=== PATIENT | female | born 1960 | race Caucasian/White ===

== ENCOUNTER 2017-07-10 10:25 | Observation (INO) | payer MEDICARE, MEDICAID ==
[~2017-07-10] VITALS: Ht 157.5 cm; Wt 66.8 kg
[~2017-07-10 10:25] MED LIST: AMOX1TAB64 PO; CLON1TAB PO; HYDR-3237 PO; LEVO25TA4 PO
[2017-07-10 11:19] LABS: DAU SCREEN DISCLAIMER
[2017-07-10] MEDS ORDERED: LORazepam 1MG TABLET ONE (11:42)
[2017-07-10] MEDS ORDERED: LORazepam 1MG TABLET PO ONE (12:00)
[2017-07-10 12:03] LABS: HEMATOCRIT 42.6 % (34.6-47.8); HEMOGLOBIN 14.5 g/dL (11.7-16.4); WHITE BLOOD COUNT 9.3 x10^3/uL (3.4-10)
[2017-07-10 12:24] LABS: BLOOD UREA NITROGEN 15 mg/dL (7-18)
[2017-07-10 12:53] LABS: ASPARTATE AMINO TRANSFERASE 33 U/L (15-37)
[2017-07-10 12:55] LABS: ACETAMINOPHEN < 2 mcg/mL (10-30)
[2017-07-10] MEDS ORDERED: IBUPROFEN 200 MG TABLET PO ONE (16:30)
[2017-07-10] MEDS ORDERED: IBUPROFEN 200 MG TABLET ONE (16:54)
[2017-07-10] MEDS: NICOTINE 21 MG/24 HR PATCH.TD24 TD SCH (17:30)
[2017-07-10] MEDS ORDERED: BISACODYL 10 MG SUPP PR PRN (17:30)
[2017-07-10] MEDS ORDERED: DOCUSATE 100 MG CAPSULE PO PRN (17:30)
[2017-07-10] MEDS ORDERED: DIPHENHYDRAMINE 50 MG CAPSULE PO PRN (17:30)
[2017-07-10] MEDS ORDERED: ONDANSETRON ODT 4 MG PO PRN (17:30)
[2017-07-10] MEDS ORDERED: POLYETHYLENE GLYCOL 17 GM PACKET PO PRN (17:30)
[2017-07-10 18:26] VITALS: BP 129/73
[2017-07-10 19:49] VITALS: BP 112/68
[2017-07-10] MEDS: LORazepam 1MG TABLET PO PRN (21:15)
[2017-07-10] MEDS: ACETAMINOPHEN 325 MG TABLET PO PRN (21:16)
[2017-07-11 08:00] VITALS: BP 129/79
[2017-07-11] MEDS: ACETAMINOPHEN 325 MG TABLET PO PRN ×2 (08:07→18:37)
[2017-07-11] MEDS: LORazepam 1MG TABLET PO PRN ×2 (08:08→20:57)
[2017-07-11] MEDS ORDERED: IBUPROFEN 200 MG TABLET ONE (12:05)
[2017-07-11] MEDS ORDERED: IBUPROFEN 200 MG TABLET PO PRN ×2 (12:30→19:00)
[2017-07-11] MEDS: NICOTINE 21 MG/24 HR PATCH.TD24 TD SCH (12:56)
[2017-07-11] MEDS ORDERED: POLYETHYLENE GLYCOL 17 GM PACKET PO PRN (19:00)
[2017-07-11] MEDS ORDERED: ONDANSETRON ODT 4 MG PO PRN (19:00)
[2017-07-11] MEDS ORDERED: DIPHENHYDRAMINE 50 MG CAPSULE PO PRN (19:00)
[2017-07-11] MEDS ORDERED: DOCUSATE 100 MG CAPSULE PO PRN (19:00)
[2017-07-11] MEDS ORDERED: BISACODYL 10 MG SUPP PR PRN (19:00)
[2017-07-11 19:22] VITALS: BP 147/71
[2017-07-12 08:11] VITALS: BP 133/84
[2017-07-12] MEDS: ACETAMINOPHEN 325 MG TABLET PO PRN (08:58)
[2017-07-12] MEDS: LORazepam 1MG TABLET PO PRN ×2 (08:58→15:00)
[2017-07-12] MEDS: NICOTINE 21 MG/24 HR PATCH.TD24 TD SCH (13:13)
== END 2017-07-12 19:57 ==
LOC: ED 13:26 → EDIP 14:52 → INTOOBSV 14:52 → 3E 17:41
PROVIDERS: ADMIT Internal Medicine; ATTEND Internal Medicine
DX: R45.851 Suicidal ideations (principal); F20.9 Schizophrenia, unspecified; F22 Delusional disorders; F32.9 Major depressive disorder, single episode, unspecified; F43.10 Post-traumatic stress disorder, unspecified; F17.210 Nicotine dependence, cigarettes, uncomplicated; Z91.14 Patient's other noncompliance with medication regimen
CPT/HCPCS: 36415; 80053; 80307; 80329; 81003; 85025; 93005; 99285; G0378; Q0162; G0479; G0480

== ENCOUNTER 2017-09-21 09:35 | Emergency (ER) | payer MEDICARE, MEDICAID ==
[~2017-09-21] VITALS: Ht 157.5 cm; Wt 71.0 kg
[2017-09-21 11:22] LABS: HEMATOCRIT 44.5 % (34.6-47.8); HEMOGLOBIN 15.3 g/dL (11.7-16.4); WHITE BLOOD COUNT 7.7 x10^3/uL (3.4-10)
[2017-09-21] MEDS ORDERED: ACETAMINOPHEN 325 MG TABLET PO ONE (11:30)
[2017-09-21 11:34] LABS: BLOOD UREA NITROGEN 13 mg/dL (7-18)
[2017-09-21 11:37] LABS: ASPARTATE AMINO TRANSFERASE 32 U/L (15-37)
[2017-09-21] MEDS ORDERED: ACETAMINOPHEN 325 MG TABLET ONE (11:54)
[2017-09-21 13:34] VITALS: BP 145/65
== END 2017-09-21 13:36 | disposition home or self-care (01) ==
LOC: ED 13:05
DX: J18.1 Lobar pneumonia, unspecified organism (principal); F20.9 Schizophrenia, unspecified
CPT/HCPCS: 36415; 71020; 80053; 81003; 83690; 85025; 93005; 99285

== ENCOUNTER 2017-12-08 13:02 | Observation (INO) | payer MEDICARE, MEDICAID ==
[~2017-12-08] VITALS: Ht 157.5 cm; Wt 68.9 kg
[2017-12-08 15:03] LABS: MICROSCOPIC NOT IND
[2017-12-08 15:07] LABS: BASOPHILS # (AUTO) 0.12 x10^3/uL (0-0.1); BASOPHILS % (AUTO) 1 % (0-1); EOSINOPHILS # (AUTO) 0.08 x10^3/uL (0-0.4); EOSINOPHILS % (AUTO) 1 % (1-7); LYMPHOCYTES % (AUTO) 30 % (22-44); MD NO; MEAN CORPUSCULAR HEMOGLOBIN 31.3 pg (27.0-34.8); MEAN CORPUSCULAR HGB CONC 33.3 g/dL (32.4-35.8); MEAN PLATELET VOLUME 8.4 fL (7.4-10.4); MONOCYTES # (AUTO) 0.38 x10^3/uL (0.2-0.8); MONOCYTES % (AUTO) 4 % (2-9); NEUTROPHILS # (AUTO) 5.38 x10^3/uL (1.8-6.8); NEUTROPHILS % (AUTO) 63 % (42-75); PLATELET COUNT 295 x10^3/uL (130-400); RED BLOOD COUNT 4.87 x10^6/uL (3.82-5.3); RED CELL DISTRIBUTION WIDTH 13.7 % (9.6-15.2)
[2017-12-08 15:07] LABS: CULTURE INDICATED? NO
[2017-12-08 15:15] LABS: AMPHETAMINE SCREEN, URINE Negative (Negative); BARBITURATE SCREEN, URINE Negative (Negative); BENZODIAZEPINE SCREEN, URINE Negative (Negative); CANNABINOID SCREEN, URINE Negative (Negative); COCAINE SCREEN, URINE Negative (Negative); METHADONE SCREEN, URINE Negative (Negative); OPIATE SCREEN, URINE Negative (Negative)
[2017-12-08 15:18] LABS: ALANINE AMINOTRANSFERASE 27 U/L (12-78); ALBUMIN 3.5 g/dL (3.4-5.0); ANION GAP 5 mmol/L (5-15); CALCIUM 8.3 mg/dL (8.5-10.1); CHLORIDE 110 mmol/L (98-107); CREATININE 0.88 mg/dL (0.55-1.02); SALICYLATE LEVEL 3.6 mg/dL (2.8-20.0)
[2017-12-08 15:19] LABS: ACETAMINOPHEN < 2 mcg/mL (10-30)
[2017-12-08 15:20] LABS: ALKALINE PHOSPHATASE 98 U/L (45-117); BILIRUBIN,TOTAL 0.3 mg/dL (0.2-1.0); TOTAL PROTEIN 7.1 g/dL (6.4-8.2)
[2017-12-08] MEDS ORDERED: HALOPERIDOL 5 MG/ML IM PRN (17:30)
[2017-12-08] MEDS ORDERED: LORazepam 0.5MG TABLET ONE (18:32)
[2017-12-08] MEDS: LORazepam 1MG TABLET PO PRN (18:36)
[2017-12-09 11:58] VITALS: BP 131/80
[2017-12-09] MEDS: LORazepam 1MG TABLET PO PRN ×3 (13:18→21:49)
[2017-12-09 19:21] VITALS: BP 147/84
[2017-12-09] MEDS: ACETAMINOPHEN 325 MG TABLET PO PRN (21:49)
[2017-12-10 07:41] VITALS: BP 107/64
[2017-12-10] MEDS: LORazepam 1MG TABLET PO PRN (10:03)
[2017-12-10] MEDS: ACETAMINOPHEN 325 MG TABLET PO PRN (10:03)
[2017-12-10] MEDS: LORazepam 0.5MG TABLET PO PRN ×2 (14:22→19:49)
[2017-12-10 19:23] VITALS: BP 118/73
[2017-12-11 08:13] VITALS: BP 114/66
[2017-12-11] MEDS: LORazepam 0.5MG TABLET PO PRN ×2 (08:50→16:17)
[2017-12-11] MEDS ORDERED: LORazepam 0.5MG TABLET PO ONE (17:30)
[2017-12-11 19:53] VITALS: BP 135/82
[2017-12-12 08:29] VITALS: BP 139/79
[2017-12-12] MEDS: LORazepam 0.5MG TABLET PO PRN ×4 (09:12→21:11)
[2017-12-12] MEDS: ACETAMINOPHEN 325 MG TABLET PO PRN (09:12)
[2017-12-12 20:16] VITALS: BP 126/78
[2017-12-13 08:30] VITALS: BP 128/86
[2017-12-13] MEDS: ACETAMINOPHEN 325 MG TABLET PO PRN ×2 (09:13→22:03)
[2017-12-13] MEDS: LORazepam 0.5MG TABLET PO PRN ×4 (09:13→20:25)
[2017-12-13 20:55] VITALS: BP 131/69
[2017-12-14 07:38] VITALS: BP 119/76
[2017-12-14] MEDS: LORazepam 0.5MG TABLET PO PRN ×3 (07:51→20:30)
[2017-12-14] MEDS: DIPHENHYDRAMINE 50 MG CAPSULE PO PRN ×2 (16:23→20:25)
[2017-12-14 20:24] VITALS: BP 123/80
[2017-12-15 08:20] VITALS: BP 123/81
[2017-12-15] MEDS: LORazepam 0.5MG TABLET PO PRN ×3 (08:39→20:26)
[2017-12-15] MEDS: ACETAMINOPHEN 325 MG TABLET PO PRN (11:35)
[2017-12-15 19:38] VITALS: BP 122/75
[2017-12-16 08:15] VITALS: BP 119/72
[2017-12-16] MEDS: LORazepam 0.5MG TABLET PO PRN ×4 (08:30→23:51)
[2017-12-16] MEDS ORDERED: LORazepam 0.5MG TABLET PO ONE (14:00)
[2017-12-16 19:35] VITALS: BP 142/77
[2017-12-16] MEDS: ACETAMINOPHEN 325 MG TABLET PO PRN (21:29)
[2017-12-17 07:37] VITALS: BP 124/77
[2017-12-17] MEDS: LORazepam 0.5MG TABLET PO PRN ×2 (08:26→13:20)
== END 2017-12-17 16:34 | disposition home or self-care (01) ==
LOC: ED 15:25 → EDIP 16:02 → 2N 12-09 11:23
PROVIDERS: ADMIT Internal Medicine Pulmonary Disease; ATTEND Internal Medicine Pulmonary Disease
DX: R45.851 Suicidal ideations (principal); F33.2 Major depressive disorder, recurrent severe without psychotic features; F20.9 Schizophrenia, unspecified; F43.10 Post-traumatic stress disorder, unspecified; F17.210 Nicotine dependence, cigarettes, uncomplicated
CPT/HCPCS: 36415; 80053; 80307; 80329; 81003; 82140; 85025; 93005; 99285; G0378; G0480

== ENCOUNTER 2018-07-22 09:57 | Emergency (ER) | payer MEDICARE, MEDICAID ==
[~2018-07-22] VITALS: Ht 154.9 cm; Wt 77.3 kg
[2018-07-22] MEDS ORDERED: ALBUTEROL/IPRATROPIUM 2.5MG/0.5MG, 3 ML NPPB ONE (10:30)
[2018-07-22 10:41] LABS: BASOPHILS # (AUTO) 0.04 x10^3/uL (0-0.1); BASOPHILS % (AUTO) 1 % (0-1); EOSINOPHILS # (AUTO) 0.25 x10^3/uL (0-0.4); EOSINOPHILS % (AUTO) 4 % (1-7); LYMPHOCYTES # (AUTO) 1.99 x10^3/uL (1-3.4); LYMPHOCYTES % (AUTO) 31 % (22-44); MD NO; MEAN CORPUSCULAR HEMOGLOBIN 32.1 pg (27.0-34.8); MEAN CORPUSCULAR HGB CONC 33.8 g/dL (32.4-35.8); MEAN PLATELET VOLUME 7.8 fL (7.4-10.4); MONOCYTES % (AUTO) 8 % (2-9); NEUTROPHILS # (AUTO) 3.74 x10^3/uL (1.8-6.8); NEUTROPHILS % (AUTO) 57 % (42-75); PLATELET COUNT 295 x10^3/uL (130-400); RED BLOOD COUNT 4.42 x10^6/uL (3.82-5.3); RED CELL DISTRIBUTION WIDTH 14.5 % (9.6-15.2)
[2018-07-22] MEDS ORDERED: ALBUTEROL/IPRATROPIUM 2.5MG/0.5MG, 3 ML ONE (10:43)
[2018-07-22 10:53] LABS: ALBUMIN 3.4 g/dL (3.4-5.0); ANION GAP 6 mmol/L (5-15); CALCIUM 8.3 mg/dL (8.5-10.1); CHLORIDE 110 mmol/L (98-107); CREATININE 0.85 mg/dL (0.55-1.02)
[2018-07-22 10:57] LABS: TROPONIN I 0.025 ng/mL (0.000-0.045)
[2018-07-22] MEDS ORDERED: OMNIPAQUE 350 MG/ML, 75ML BOTTLE ONE (12:00)
[2018-07-22 12:37] VITALS: BP 155/67
== END 2018-07-22 12:49 | disposition home or self-care (01) ==
LOC: ED 10:28
DX: J20.9 Acute bronchitis, unspecified (principal); R07.89 Other chest pain; R06.00 Dyspnea, unspecified; F32.9 Major depressive disorder, single episode, unspecified; H54.7 Unspecified visual loss; F20.9 Schizophrenia, unspecified; F43.10 Post-traumatic stress disorder, unspecified
CPT/HCPCS: 36415; 71046; 71260; 80048; 82040; 83880; 84484; 85025; 93005; 94640; 99285; J7620; Q9967

== ENCOUNTER 2018-12-23 10:22 | Emergency (ER) | payer MEDICARE, MEDICAID ==
[~2018-12-23] VITALS: Ht 160 cm; Wt 77.8 kg
--- NOTE | 2018-12-23 10:38 | NUR ---
CALLED FOR TRIAGE, "IN THE BR"
[2018-12-23 11:41] LABS: MEAN CORPUSCULAR HEMOGLOBIN 32.3 pg (27.0-34.8); MEAN CORPUSCULAR HGB CONC 34.4 g/dL (32.4-35.8); MEAN CORPUSCULAR VOLUME 93.8 fL (80-100); MEAN PLATELET VOLUME 7.8 fL (7.4-10.4); PLATELET COUNT 356 x10^3/uL (130-400); RED BLOOD COUNT 4.57 x10^6/uL (3.82-5.3); RED CELL DISTRIBUTION WIDTH 14.1 % (9.6-15.2)
[2018-12-23 11:47] LABS: BASOPHILS # (AUTO) 0.03 x10^3/uL (0-0.1); BASOPHILS % (AUTO) 0 % (0-1); EOSINOPHILS # (AUTO) 0.11 x10^3/uL (0-0.4); EOSINOPHILS % (AUTO) 1 % (1-7); LYMPHOCYTES # (AUTO) 1.87 x10^3/uL (1-3.4); LYMPHOCYTES % (AUTO) 20 % (22-44); MONOCYTES # (AUTO) 0.45 x10^3/uL (0.2-0.8); MONOCYTES % (AUTO) 5 % (2-9); NEUTROPHILS # (AUTO) 7.04 x10^3/uL (1.8-6.8); NEUTROPHILS % (AUTO) 74 % (42-75)
[2018-12-23 11:49] LABS: MD NO
[2018-12-23 11:51] LABS: ALBUMIN 3.8 g/dL (3.4-5.0); ANION GAP 8 mmol/L (5-15); CHLORIDE 109 mmol/L (98-107); CREATININE 0.92 mg/dL (0.55-1.02)
[2018-12-23 11:55] LABS: TROPONIN I < 0.015 ng/mL (0.000-0.045)
[2018-12-23] MEDS ORDERED: ONDANSETRON 2MG/ML, 2ML ONE (15:08)
--- NOTE | 2018-12-23 15:11 | NUR ---
PT TO ROOM FROM LOBBY
[2018-12-23 15:25] VITALS: BP 179/98
[2018-12-23] MEDS ORDERED: LORazepam 1MG TABLET ONE (15:40)
--- NOTE | 2018-12-23 15:49 | NUR ---
PT PRESENTED TO ED WITH N/T IN BILAT UE, LE, AND FACE WITH SHAKING. PT STATES SHE STOPPED TAKING HER ETOH WITHDRAWL MEDICATION A COUPLE DAYS AGO SO SHE COULD DRINK. LABS AND CT COMPLETE, PROVIDER AT BEDSIDE
[2018-12-23] MEDS ORDERED: LORazepam 1MG TABLET PO ONE (16:00)
== END 2018-12-23 16:31 | disposition home or self-care (01) ==
LOC: ED 16:11
DX: I10 Essential (primary) hypertension (principal); R51 Headache; Z87.891 Personal history of nicotine dependence
CPT/HCPCS: 36415; 70450; 71045; 80048; 82040; 84484; 85025; 93005; 99284

== ENCOUNTER 2019-03-21 08:00 | Emergency (ER) | payer MEDICARE, MEDICAID ==
[~2019-03-21] VITALS: Ht 160 cm; Wt 80.5 kg
[2019-03-21 08:03] VITALS: BP 178/95
--- NOTE | 2019-03-21 08:15 | NUR ---
FIRST CONTACT WITH PT. Pt sitting in chair in ED room. Provided sheet on [facility] gown. Pt changing in room at this time. Pt stated to EDRN, "I have had coughing, chest pain here in my ribs and in my back when I cough, nausea, vomiting, and saw stars this morning when coughing so hard that I had to lay on my stomach to get it up, this has been going on for one month." NADN. Pt ambulates with steady gait and balance. Call light within reach.
[2019-03-21] MEDS ORDERED: ALBUTEROL SULFATE 2.5 MG/3 ML ONE (08:46)
[2019-03-21] MEDS ORDERED: SODIUM CHLORIDE FLUSH 10ML SYR IVF ONE (09:00)
[2019-03-21] MEDS ORDERED: ALBUTEROL SULFATE 2.5 MG/3 ML NPPB ONE (09:00)
[2019-03-21] MEDS ORDERED: ASPIRIN 81 MG TABLET CHEW PO ONE (09:00)
--- NOTE | 2019-03-21 09:00 | NUR ---
Provided bedside report to DREW Silveira. All questions answered. NADN. No needs expressed at this time.
[2019-03-21 09:04] LABS: BASOPHILS # (AUTO) 0.04 x10^3/uL (0-0.1); BASOPHILS % (AUTO) 1 % (0-1); EOSINOPHILS # (AUTO) 0.18 x10^3/uL (0-0.4); EOSINOPHILS % (AUTO) 3 % (1-7); LYMPHOCYTES # (AUTO) 2.09 x10^3/uL (1-3.4); LYMPHOCYTES % (AUTO) 33 % (22-44); MD NO; MEAN CORPUSCULAR HEMOGLOBIN 31.3 pg (27.0-34.8); MEAN CORPUSCULAR HGB CONC 32.9 g/dL (32.4-35.8); MEAN CORPUSCULAR VOLUME 95.1 fL (80-100); MEAN PLATELET VOLUME 7.7 fL (7.4-10.4); MONOCYTES # (AUTO) 0.56 x10^3/uL (0.2-0.8); MONOCYTES % (AUTO) 9 % (2-9); NEUTROPHILS # (AUTO) 3.53 x10^3/uL (1.8-6.8); NEUTROPHILS % (AUTO) 55 % (42-75); PLATELET COUNT 294 x10^3/uL (130-400); RED BLOOD COUNT 4.35 x10^6/uL (3.82-5.3)
[2019-03-21 09:12] LABS: ALBUMIN 3.3 g/dL (3.4-5.0); ANION GAP 4 mmol/L (5-15); CALCIUM 8.8 mg/dL (8.5-10.1); CHLORIDE 111 mmol/L (98-107)
[2019-03-21 09:18] LABS: TROPONIN I < 0.015 ng/mL (0.000-0.045)
[2019-03-21] MEDS ORDERED: ASPIRIN 81 MG TABLET CHEW ONE (09:19)
--- NOTE | 2019-03-21 09:25 | NUR ---
Assumed care of pt. Pt states she received a breathing treatment and that it has helped her breathing. Pt not coughing at this moment. Indicating bilateral rib and upper back pain with cough
[2019-03-21] MEDS ORDERED: ONDANSETRON ODT 4 MG PO ONE (10:00)
[2019-03-21] MEDS ORDERED: ONDANSETRON ODT 4 MG ONE (10:01)
--- NOTE | 2019-03-21 10:47 | NUR ---
PT TOLERATED PO CHALLENGE AFTER GIVEN ZOFRAN. AMBULATED TO BATHROOM. AWAITING DISPO
== END 2019-03-21 11:18 | disposition home or self-care (01) ==
LOC: ED 09:45
DX: J06.9 Acute upper respiratory infection, unspecified (principal); I10 Essential (primary) hypertension; F20.9 Schizophrenia, unspecified; Z87.891 Personal history of nicotine dependence
CPT/HCPCS: 36415; 71045; 80048; 82040; 83880; 84484; 85025; 85379; 93005; 94640; 99284; J7613; Q0162

== ENCOUNTER 2019-10-07 10:23 | Emergency (ER) | payer MEDICARE, MEDICAID ==
[~2019-10-07] VITALS: Ht 160 cm; Wt 81.0 kg
--- NOTE | 2019-10-07 11:01 | NUR ---
PATIENT BROUGTH BACK FROM TRIAGE WITH CHIEF COMPLAINT OF COUGH FOR TWO WEEKS, WITH WHITE SPUTUM. PATIENT ALSO REPORTS INTERMITTENT N/V, HOWEVER DENIES SOB, & CP. THE PATIENT IS ALERT, ORIENTED, WARM & DRY.
[2019-10-07] MEDS ORDERED: LISI2.5T PO (11:07)
[2019-10-07] MEDS ORDERED: SIMV5TAB14 PO (11:07)
[2019-10-07] MEDS ORDERED: IBUPROFEN 200 MG TABLET ONE (11:25)
[2019-10-07] MEDS ORDERED: IBUPROFEN 200 MG TABLET PO ONE (11:30)
--- NOTE | 2019-10-07 11:48 | NUR ---
MEDICATED ORDERED. PATIENT RESTIGN IN BED
[2019-10-07 11:57] LABS: BASOPHILS # (AUTO) 0.03 x10^3/uL (0-0.1); BASOPHILS % (AUTO) 1 % (0-1); EOSINOPHILS # (AUTO) 0.14 x10^3/uL (0-0.4); EOSINOPHILS % (AUTO) 3 % (1-7); LYMPHOCYTES # (AUTO) 1.72 x10^3/uL (1-3.4); LYMPHOCYTES % (AUTO) 29 % (22-44); MD NO; MEAN CORPUSCULAR HEMOGLOBIN 31.7 pg (27.0-34.8); MEAN CORPUSCULAR HGB CONC 33.2 g/dL (32.4-35.8); MEAN CORPUSCULAR VOLUME 95.4 fL (80-100); MEAN PLATELET VOLUME 7.8 fL (7.4-10.4); MONOCYTES # (AUTO) 0.57 x10^3/uL (0.2-0.8); MONOCYTES % (AUTO) 10 % (2-9); NEUTROPHILS # (AUTO) 3.41 x10^3/uL (1.8-6.8); NEUTROPHILS % (AUTO) 58 % (42-75); PLATELET COUNT 313 x10^3/uL (130-400); RED BLOOD COUNT 4.64 x10^6/uL (3.82-5.3); RED CELL DISTRIBUTION WIDTH 14.4 % (9.6-15.2)
[2019-10-07 12:04] LABS: CHLORIDE 108 mmol/L (98-107)
[2019-10-07 12:16] LABS: ALBUMIN 3.5 g/dL (3.4-5.0); ANION GAP 6 mmol/L (5-15); CALCIUM 8.9 mg/dL (8.5-10.1)
--- NOTE | 2019-10-07 12:20 | NUR ---
PATIENT BACK FROM IMAGING
[2019-10-07 12:39] VITALS: BP 152/66
--- NOTE | 2019-10-07 12:39 | NUR ---
ERMD GRAUSE AT BEDSIDE TO DISCUSS POC
--- NOTE | 2019-10-07 12:58 | NUR ---
DISCHARGE INSTRUCTIONS REVIEWED.
== END 2019-10-07 13:00 | disposition home or self-care (01) ==
LOC: ED 12:30
DX: B34.9 Viral infection, unspecified (principal); R09.3 Abnormal sputum; M79.10 Myalgia, unspecified site; I10 Essential (primary) hypertension; Z87.891 Personal history of nicotine dependence
CPT/HCPCS: 36415; 71046; 80048; 82040; 85025; 93005; 99284

== ENCOUNTER 2019-10-31 08:28 | Emergency (ER) | payer MEDICARE, MEDICAID ==
[~2019-10-31] VITALS: Ht 160 cm; Wt 82.8 kg
[~2019-10-31 08:28] MED LIST changes: +LISI2.5T PO; +SIMV5TAB14 PO
[2019-10-31] MEDS ORDERED: ONDANSETRON 2MG/ML, 2ML ONE (09:13)
[2019-10-31] MEDS ORDERED: MORPHINE SULFATE 4 MG/ML, 1ML ONE (09:13)
[2019-10-31] MEDS ORDERED: ONDANSETRON 2MG/ML, 2ML IVPush ONE (09:30)
[2019-10-31] MEDS ORDERED: MORPHINE SULFATE 4 MG/ML, 1ML IVPush PRN (09:30)
[2019-10-31] MEDS ORDERED: SODIUM CHLORIDE FLUSH 10ML SYR IVF ONE (09:30)
--- NOTE | 2019-10-31 09:51 | NUR ---
IV ESTABLISHED AND PT MEDICATED PER MAR, URINE AND BLOOD SAMPLES GIVEN TO MEDICAL RESEARCH ASSOCIATE. PT PLACED ON MONITOR, UPGRADED TO PHU LEVEL 3. CALL LIGHT WITHIN REACH, AT BEDSIDE.
[2019-10-31 10:01] LABS: MICROSCOPIC NOT IND
[2019-10-31 10:06] LABS: BASOPHILS # (AUTO) 0.07 x10^3/uL (0-0.1); BASOPHILS % (AUTO) 1 % (0-1); EOSINOPHILS % (AUTO) 3 % (1-7); LYMPHOCYTES # (AUTO) 2.44 x10^3/uL (1-3.4); LYMPHOCYTES % (AUTO) 32 % (22-44); MD NO; MEAN CORPUSCULAR HEMOGLOBIN 31.5 pg (27.0-34.8); MEAN CORPUSCULAR VOLUME 95.3 fL (80-100); MONOCYTES # (AUTO) 0.65 x10^3/uL (0.2-0.8); MONOCYTES % (AUTO) 9 % (2-9); NEUTROPHILS % (AUTO) 56 % (42-75); PLATELET COUNT 316 x10^3/uL (130-400); RED BLOOD COUNT 4.61 x10^6/uL (3.82-5.3); RED CELL DISTRIBUTION WIDTH 14.6 % (9.6-15.2)
[2019-10-31 10:10] LABS: CULTURE INDICATED? NO
[2019-10-31 10:14] LABS: ALBUMIN 3.4 g/dL (3.4-5.0); ANION GAP 7 mmol/L (5-15); CALCIUM 8.6 mg/dL (8.5-10.1); CHLORIDE 109 mmol/L (98-107)
[2019-10-31 10:17] LABS: ALANINE AMINOTRANSFERASE 55 U/L (12-78); ALKALINE PHOSPHATASE 117 U/L (45-117); BILIRUBIN,TOTAL 0.4 mg/dL (0.2-1.0); CREATININE 1.01 mg/dL (0.55-1.02); TOTAL PROTEIN 7.4 g/dL (6.4-8.2)
[2019-10-31] MEDS ORDERED: OMNIPAQUE 350 MG/ML, 100ML BOTTLE ONE (11:28)
[2019-10-31] MEDS ORDERED: IBUPROFEN 600 MG TABLET PO ONE (11:30)
[2019-10-31 11:37] VITALS: BP 166/73
== END 2019-10-31 12:16 | disposition home or self-care (01) ==
LOC: ED 12:00
DX: M51.36 Other intervertebral disc degeneration, lumbar region (principal); R11.0 Nausea
CPT/HCPCS: 36415; 74177; 80053; 81003; 83690; 85025; 96374; 96375; 99284; J2270; J2405; Q9967

== ENCOUNTER 2020-05-13 08:34 | Emergency (ER) | payer MEDICARE, MEDICAID ==
[~2020-05-13] VITALS: Ht 160 cm; Wt 83.0 kg
--- NOTE | 2020-05-13 09:21 | NUR ---
REPORT FROM TAMANNA RUSSELL.
[2020-05-13 09:30] LABS: BASOPHILS # (AUTO) 0.05 x10^3/uL (0-0.1); BASOPHILS % (AUTO) 1 % (0-1); EOSINOPHILS # (AUTO) 0.22 x10^3/uL (0-0.4); EOSINOPHILS % (AUTO) 3 % (1-7); LYMPHOCYTES # (AUTO) 2.16 x10^3/uL (1-3.4); LYMPHOCYTES % (AUTO) 24 % (22-44); MD NO; MEAN CORPUSCULAR HEMOGLOBIN 31.6 pg (27.0-34.8); MEAN CORPUSCULAR HGB CONC 32.9 g/dL (32.4-35.8); MEAN CORPUSCULAR VOLUME 96.1 fL (80-100); MEAN PLATELET VOLUME 7.7 fL (7.4-10.4); MONOCYTES # (AUTO) 0.63 x10^3/uL (0.2-0.8); MONOCYTES % (AUTO) 7 % (2-9); NEUTROPHILS # (AUTO) 5.77 x10^3/uL (1.8-6.8); NEUTROPHILS % (AUTO) 65 % (42-75); PLATELET COUNT 321 x10^3/uL (130-400); RED BLOOD COUNT 4.53 x10^6/uL (3.82-5.3); RED CELL DISTRIBUTION WIDTH 14.4 % (9.6-15.2)
[2020-05-13 09:45] LABS: ALANINE AMINOTRANSFERASE 55 U/L (12-78); ALBUMIN 3.5 g/dL (3.4-5.0); ANION GAP 7 mmol/L (5-15); CHLORIDE 110 mmol/L (98-107); CREATININE 0.88 mg/dL (0.55-1.02)
[2020-05-13 09:47] LABS: ALKALINE PHOSPHATASE 130 U/L (45-117); BILIRUBIN,TOTAL 0.5 mg/dL (0.2-1.0); TOTAL PROTEIN 7.2 g/dL (6.4-8.2)
[2020-05-13] MEDS ORDERED: NEOSPORIN OINT. PKT 1 PACKET ONE (10:09)
[2020-05-13 10:31] LABS: MICROSCOPIC NOT IND
--- NOTE | 2020-05-13 10:35 | NUR ---
OOB TO BATHROOM GAIT STEADY UA SENT TO LAB. VSS. CALL ALLY Allen
--- NOTE | 2020-05-13 10:55 | NUR ---
RESULTS BACK ALL WNL RECHECK.
[2020-05-13 11:20] VITALS: BP 148/78
== END 2020-05-13 11:22 | disposition home or self-care (01) ==
LOC: ED 09:04
DX: J06.9 Acute upper respiratory infection, unspecified (principal); H92.02 Otalgia, left ear; R07.89 Other chest pain; Z76.0 Encounter for issue of repeat prescription; I10 Essential (primary) hypertension; Z87.891 Personal history of nicotine dependence
CPT/HCPCS: 36415; 71045; 80053; 81003; 85025; 99284

== ENCOUNTER 2020-06-21 17:21 | Emergency (ER) | payer MEDICARE, MEDICAID ==
[~2020-06-21] VITALS: Ht 157.5 cm; Wt 85.6 kg
[2020-06-21 17:24] VITALS: BP 201/113
[2020-06-21] MEDS ORDERED: NEOSPORIN OINT. PKT 1 PACKET ONE (17:59)
[2020-06-21] MEDS ORDERED: DIPH,PERTUSS(ACELL),TET VAC/PF 0.5 ML IM-VACC ONE ×2 (17:59→18:00)
[2020-06-21] MEDS ORDERED: LIDOCAINE-MPF 1%, 5ML INFIL ONE (18:00)
--- NOTE | 2020-06-21 18:57 | NUR ---
Patient given wound care and discharge instructions and they have confirmed that they understand the instructions. Patient ambulatory with steady gait.
== END 2020-06-21 18:58 | disposition home or self-care (01) ==
LOC: ED 18:50
DX: S61.012A Laceration without foreign body of left thumb without damage to nail, initial encounter (principal); I10 Essential (primary) hypertension; Z87.891 Personal history of nicotine dependence; W26.0XXA Contact with knife, initial encounter; Y93.89 Activity, other specified; Y92.090 Kitchen in other non-institutional residence as the place of occurrence of the external cause; Y99.8 Other external cause status
CPT/HCPCS: 12001; 90471; 90715; 99283

== ENCOUNTER 2020-11-11 09:20 | Emergency (ER) | payer MEDICARE, MEDICAID ==
[~2020-11-11] VITALS: Ht 160 cm; Wt 86.0 kg
--- NOTE | 2020-11-11 09:33 | NUR ---
Pt ambulatory to bathroom for UA with steady gait.
--- NOTE | 2020-11-11 09:55 | NUR ---
REPORT OF PT FROM DREW AHUJA AND ASSUMING CARE OF PT AT THIS TIME.
[2020-11-11] MEDS ORDERED: HYDROcodone/APAP 5/325 TABLET ONE (09:59)
[2020-11-11] MEDS ORDERED: HYDROcodone/APAP 5/325 TABLET PO ONE (10:00)
--- NOTE | 2020-11-11 10:04 | NUR ---
pt medicated per mar at this time. lab at for pt blood draw.
[2020-11-11 10:23] LABS: MICROSCOPIC NOT IND
[2020-11-11 10:32] LABS: ALANINE AMINOTRANSFERASE 102 U/L (12-78); ALBUMIN 3.6 g/dL (3.4-5.0); ANION GAP 2 mmol/L (5-15); CALCIUM 8.7 mg/dL (8.5-10.1); CHLORIDE 111 mmol/L (98-107); CREATININE 0.91 mg/dL (0.55-1.02)
[2020-11-11 10:34] LABS: ALKALINE PHOSPHATASE 148 U/L (45-117); BILIRUBIN,TOTAL 0.4 mg/dL (0.2-1.0); TOTAL PROTEIN 7.8 g/dL (6.4-8.2)
[2020-11-11 10:47] LABS: BASOPHILS % (AUTO) 0 % (0-1); EOSINOPHILS % (AUTO) 3 % (1-7); LYMPHOCYTES % (AUTO) 32 % (22-44); MEAN CORPUSCULAR HEMOGLOBIN 32.7 pg (27.0-34.8); MEAN CORPUSCULAR HGB CONC 33.9 g/dL (32.4-35.8); MEAN PLATELET VOLUME 8.3 fL (7.4-10.4); MONOCYTES % (AUTO) 8 % (2-9); NEUTROPHILS % (AUTO) 56 % (42-75); PLATELET COUNT 313 x10^3/uL (130-400); RED BLOOD COUNT 4.78 x10^6/uL (3.82-5.3)
[2020-11-11 10:57] LABS: MD NO
--- NOTE | 2020-11-11 12:18 | NUR ---
PT D/C WITH D/C SUMMARY AND SCRIPTS. ALL QUESTIONS ANSWERED. PT AMBULATES TO REGISTRATION DESK WITH STEADY GAIT FOR D/C HOME AND DENIES ANY OTHER NEEDS PERTAINING TO THIS VISIT. PT QUESTIONS ANSWERED. PT USE OF HOSPITAL PHONE TO CALL SON FOR RIDE HOME.
[2020-11-11 12:19] VITALS: BP 114/81
== END 2020-11-11 12:31 | disposition home or self-care (01) ==
LOC: ED 10:51
DX: M51.36 Other intervertebral disc degeneration, lumbar region (principal); K70.10 Alcoholic hepatitis without ascites; K76.0 Fatty (change of) liver, not elsewhere classified; G89.29 Other chronic pain; I10 Essential (primary) hypertension
CPT/HCPCS: 36415; 72110; 76700; 80053; 81003; 85025; 99285

== ENCOUNTER 2021-01-26 10:10 | Observation (INO) | payer MEDICARE, MEDICAID ==
[~2021-01-26] VITALS: Ht 160 cm; Wt 90.1 kg
[~2021-01-26 10:10] MED LIST changes: -LISI2.5T PO; +LISI2.5T12 PO
--- NOTE | 2021-01-26 13:06 | NUR ---
Pt ambulatory to room from lobby with steady gait.
[2021-01-26] MEDS ORDERED: LORA-446 PO (13:25)
--- NOTE | 2021-01-26 13:25 | NUR ---
Dr. Tang at bedside to evaluate pt. Pt reports intermittent mid chest pain 3/10, dizziness, and HTN x3 days. Pt speaking in full sentences, resp even and unlabored.
[2021-01-26 14:18] LABS: BASOPHILS % (AUTO) 1 % (0-1); EOSINOPHILS % (AUTO) 2 % (1-7); LYMPHOCYTES % (AUTO) 27 % (22-44); MEAN CORPUSCULAR HEMOGLOBIN 32.5 pg (27.0-34.8); MEAN CORPUSCULAR HGB CONC 33.6 g/dL (32.4-35.8); MEAN PLATELET VOLUME 8.2 fL (7.4-10.4); MONOCYTES % (AUTO) 9 % (2-9); NEUTROPHILS % (AUTO) 61 % (42-75); PLATELET COUNT 306 x10^3/uL (130-400); RED BLOOD COUNT 4.51 x10^6/uL (3.82-5.3); RED CELL DISTRIBUTION WIDTH 14.2 % (9.6-15.2)
[2021-01-26 14:22] LABS: ALANINE AMINOTRANSFERASE 80 U/L (12-78); ALBUMIN 3.3 g/dL (3.4-5.0); ANION GAP 5 mmol/L (5-15); CALCIUM 8.4 mg/dL (8.5-10.1); CHLORIDE 107 mmol/L (98-107)
--- NOTE | 2021-01-26 14:24 | NUR ---
Pt ambulatory down hallway with steady gait to use phone. Pt back to room without difficulty. Discussed pt's BP with Dr. Tang. Orders for vasotec recieved.
[2021-01-26 14:27] LABS: ALKALINE PHOSPHATASE 113 U/L (45-117); BILIRUBIN,TOTAL 0.3 mg/dL (0.2-1.0); TOTAL PROTEIN 7.2 g/dL (6.4-8.2); TROPONIN I < 0.015 ng/mL (0.000-0.045)
[2021-01-26] MEDS ORDERED: ENALAPRILAT 1.25 MG/ML, 2ML IV ONE (14:30)
[2021-01-26] MEDS ORDERED: ENALAPRILAT 1.25 MG/ML, 1ML ONE (14:36)
--- NOTE | 2021-01-26 14:48 | NUR ---
Pt to CT via [facility].
[2021-01-26] MEDS ORDERED: OMNIPAQUE 350 MG/ML, 75ML BOTTLE ONE (14:54)
--- NOTE | 2021-01-26 14:57 | NUR ---
Pt back from CT, resting in bed, JAMESN.
--- NOTE | 2021-01-26 15:08 | NUR ---
Pt continues resting in bed, NADN, denies needs.
--- NOTE | 2021-01-26 15:13 | NUR ---
BREAK RN: PT WATCHING TV IN ROOM. WEB OPERATIONS MANAGER ON. NSR NOTED. DR ZENDEJAS AWARE OF VS. NO NEW ORDERS AT THIS TIME. NO ACUTE DISTRESS NOTED. CALL LIGHT IN PLACE. WILL CONTINUE TO MONITOR
--- NOTE | 2021-01-26 15:58 | NUR ---
BREAK RN: REPOT GIVEN TO DREW MURPHY
--- NOTE | 2021-01-26 16:05 | NUR ---
Recieved report from willow RUSSELL
[2021-01-26] MEDS ORDERED: hydrALAzine 20 MG/ML, 1ML ONE (16:30)
[2021-01-26] MEDS ORDERED: hydrALAzine 20 MG/ML, 1ML IV ONE (16:30)
--- NOTE | 2021-01-26 16:38 | NUR ---
Pt medicated for continued HTN per DEC. Pt c/o 05/28 pain in the back of her neck. Pt requesting pain medication for this. Pt states "I have some hair pins in my hair, I think that's what's causing it." Pt's hair clips removed. Pt reports pain resolved.
[2021-01-26] MEDS ORDERED: ACETAMINOPHEN 325 MG TABLET ONE (17:14)
--- NOTE | 2021-01-26 17:16 | NUR ---
Pt c/o Pain in L lower ribs. Discussed with Dr. Tang. Pt medicated per DEC.
--- NOTE | 2021-01-26 17:26 | NUR ---
Pt provided meal tray and assisted with setup. Pt denies other needs.
[2021-01-26] MEDS ORDERED: ACETAMINOPHEN 325 MG TABLET PO ONE (17:30)
--- NOTE | 2021-01-26 17:43 | NUR ---
Pt reports she is feeling much better after eating her food. Pt able to position self for comfort in bed, denies other needs.
--- NOTE | 2021-01-26 18:00 | NUR ---
Called report to Darcy RUSSELL on card tele. Floor ready for pt transport.
[2021-01-26 18:27] VITALS: BP 124/74
[2021-01-26] MEDS ORDERED: NITROGLYCERIN 0.4 MG BOTTLE (25 TABS) SL PRN (19:30)
[2021-01-26] MEDS ORDERED: ONDANSETRON ODT 4 MG PO PRN (19:30)
[2021-01-26] MEDS ORDERED: morphine SULFATE 10 MG/ML, 1ML IVPush PRN (19:30)
[2021-01-26] MEDS ORDERED: POLYETHYLENE GLYCOL 17 GM PACKET PO PRN (19:30)
[2021-01-26] MEDS ORDERED: ACETAMINOPHEN 325 MG TABLET PO PRN (19:30)
[2021-01-26] MEDS ORDERED: BISACODYL 10 MG SUPP PR PRN (19:30)
[2021-01-26] MEDS ORDERED: hydrALAzine 20 MG/ML, 1ML IVPush PRN (19:30)
[2021-01-26 21:06] LABS: TROPONIN I < 0.015 ng/mL (0.000-0.045)
[2021-01-26] MEDS: HEPARIN 5,000 UNITS/ML, 1ML SQ SCH (21:42)
[2021-01-26] MEDS: LORazepam 1MG TABLET PO PRN (21:42)
[2021-01-26] MEDS: SODIUM CHLORIDE FLUSH 10ML SYR IVF SCH (21:43)
[2021-01-27 00:24] VITALS: BP 125/81
[2021-01-27 02:37] LABS: TROPONIN I < 0.015 ng/mL (0.000-0.045)
[2021-01-27 02:39] LABS: CHOL/HDL RATIO 2.7; LDL/HDL RATIO 1.3 (0.5-3.0)
[2021-01-27 05:05] VITALS: BP 157/89
[2021-01-27] MEDS: ASPIRIN 81 MG TABLET EC PO SCH (05:07)
[2021-01-27] MEDS: HEPARIN 5,000 UNITS/ML, 1ML SQ SCH ×3 (05:07→20:49)
[2021-01-27] MEDS: CARVEDILOL 6.25 MG TABLET PO SCH ×2 (05:07→18:00)
[2021-01-27 06:58] VITALS: BP 152/83
[2021-01-27] MEDS: THIAMINE 100MG TABLET PO SCH (08:13)
[2021-01-27] MEDS: SODIUM CHLORIDE FLUSH 10ML SYR IVF SCH ×2 (08:13→18:01)
[2021-01-27] MEDS: SENNA/DOCUSATE TABLET PO SCH (08:13)
[2021-01-27] MEDS: CHLORTHALIDONE 25 MG TABLET PO SCH (08:14)
[2021-01-27] MEDS ORDERED: REGADENOSON 0.4 MG/5 ML SYRINGE ONE (08:17)
[2021-01-27] MEDS ORDERED: LISINOPRIL 10 MG TABLET PO SCH (09:00)
[2021-01-27 12:28] VITALS: BP 158/78
[2021-01-27] MEDS: LORazepam 1MG TABLET PO PRN ×2 (14:39→22:41)
[2021-01-27 20:45] VITALS: BP 133/84
[2021-01-27] MEDS: LISINOPRIL 10 MG TABLET PO SCH (20:48)
[2021-01-27] MEDS ORDERED: ATORVASTATIN 40 MG TABLET PO SCH (21:00)
[2021-01-28 02:51] VITALS: BP 148/81
[2021-01-28] MEDS: ASPIRIN 81 MG TABLET EC PO SCH (05:40)
[2021-01-28] MEDS: HEPARIN 5,000 UNITS/ML, 1ML SQ SCH (05:40)
[2021-01-28] MEDS: CARVEDILOL 6.25 MG TABLET PO SCH (05:41)
[2021-01-28 05:50] VITALS: BP 147/82
[2021-01-28] MEDS: LORazepam 1MG TABLET PO PRN (05:57)
[2021-01-28 06:02] LABS: ALBUMIN 3.1 g/dL (3.4-5.0); ANION GAP 7 mmol/L (5-15); CALCIUM 9.2 mg/dL (8.5-10.1); CHLORIDE 106 mmol/L (98-107)
[2021-01-28 06:06] LABS: ALANINE AMINOTRANSFERASE 64 U/L (12-78); ALKALINE PHOSPHATASE 95 U/L (45-117); BILIRUBIN,TOTAL 0.3 mg/dL (0.2-1.0); CREATININE 0.86 mg/dL (0.55-1.02); TOTAL PROTEIN 6.6 g/dL (6.4-8.2)
[2021-01-28 07:02] VITALS: BP 143/84
[2021-01-28] MEDS: CHLORTHALIDONE 25 MG TABLET PO SCH (08:12)
[2021-01-28] MEDS: LISINOPRIL 10 MG TABLET PO SCH (08:12)
[2021-01-28] MEDS: THIAMINE 100MG TABLET PO SCH (08:12)
[2021-01-28] MEDS: SENNA/DOCUSATE TABLET PO SCH (08:13)
[2021-01-28] MEDS: SODIUM CHLORIDE FLUSH 10ML SYR IVF SCH (08:13)
[2021-01-28] MEDS ORDERED: ATOR40TA78 PO (08:41)
[2021-01-28] MEDS ORDERED: LISI-167 PO (08:41)
[2021-01-28] MEDS ORDERED: BUSP10TA PO (08:41)
== END 2021-01-28 10:37 | disposition home or self-care (01) ==
LOC: EDBD → ED 15:24 → EDIP 16:54 → INTOOBSV 16:54 → 5SO 18:01 → DCLOUNGE 01-28 10:27
PROVIDERS: ADMIT Family Medicine; ATTEND Hospitalist
DX: R07.89 Other chest pain (principal); I16.0 Hypertensive urgency; I11.0 Hypertensive heart disease with heart failure; I50.30 Unspecified diastolic (congestive) heart failure; R74.01 Elevation of levels of liver transaminase levels; K76.0 Fatty (change of) liver, not elsewhere classified; E78.5 Hyperlipidemia, unspecified; F41.8 Other specified anxiety disorders; F20.9 Schizophrenia, unspecified; F19.11 Other psychoactive substance abuse, in remission; F10.11 Alcohol abuse, in remission; Z79.899 Other long term (current) drug therapy; Z87.891 Personal history of nicotine dependence
CPT/HCPCS: 36415; 71045; 71275; 78452; 80053; 80061; 80320; 83690; 83880; 84443; 84484; 85025; 85379; 93005; 93017; 93306; 96372; 96374; 96375; 99285; A9502; G0378; J0360; J1644; J2785; Q9967; G0480

== ENCOUNTER 2021-02-07 09:44 | Emergency (ER) | payer MEDICARE, MEDICAID ==
[~2021-02-07] VITALS: Ht 160 cm; Wt 87.0 kg
[~2021-02-07 09:44] MED LIST changes: +ATOR40TA78 PO; +BUSP10TA PO; +LISI-167 PO; +LISI2.5T PO; -LISI2.5T12 PO; +LORA-446 PO
[2021-02-07] MEDS ORDERED: FAMOTIDINE 20 MG/2 ML ONE (10:23)
[2021-02-07] MEDS ORDERED: ONDANSETRON 2MG/ML, 2ML ONE (10:23)
[2021-02-07] MEDS ORDERED: ONDANSETRON 2MG/ML, 2ML IVPush ONE (10:30)
[2021-02-07] MEDS ORDERED: FAMOTIDINE 20 MG/2 ML IVPush ONE (10:30)
[2021-02-07] MEDS ORDERED: SODIUM CHLORIDE 0.9% 1,000ML IVBOLUS ONE (10:30)
--- NOTE | 2021-02-07 10:45 | NUR ---
IV PLACED, DIFFICULT ACCESS. NS BOLUS AND MEDS GIVEN PER ERP ORDER. URINE COLLECTED/SENT TO LAB. CALL LIGHT WITHIN REACH, WARM BLANKET PROVIDED.
--- NOTE | 2021-02-07 11:10 | NUR ---
PT TO CT.
[2021-02-07 11:13] LABS: MICROSCOPIC NOT IND
[2021-02-07 11:14] LABS: BASOPHILS % (AUTO) 1 % (0-1); EOSINOPHILS % (AUTO) 2 % (1-7); LYMPHOCYTES % (AUTO) 25 % (22-44); MD NO; MEAN CORPUSCULAR HGB CONC 34.6 g/dL (32.4-35.8); MEAN PLATELET VOLUME 7.5 fL (7.4-10.4); MONOCYTES % (AUTO) 7 % (2-9); NEUTROPHILS % (AUTO) 66 % (42-75); PLATELET COUNT 370 x10^3/uL (130-400); RED CELL DISTRIBUTION WIDTH 14.2 % (9.6-15.2)
[2021-02-07 11:22] LABS: ALANINE AMINOTRANSFERASE 90 U/L (12-78); ALBUMIN 3.8 g/dL (3.4-5.0); CALCIUM 9.1 mg/dL (8.5-10.1); CREATININE 0.84 mg/dL (0.55-1.02)
--- NOTE | 2021-02-07 11:33 | NUR ---
PT BACK FROM CT. [facility] IN TO SPEAK WITH PT.
[2021-02-07 12:04] LABS: ANION GAP 6 mmol/L (5-15); CHLORIDE 104 mmol/L (98-107)
--- NOTE | 2021-02-07 12:11 | NUR ---
PT MEDICATED PER ERP ORDER. VS UPDATED IN COMPUTER. CALL LIGHT WITHIN REACH.
[2021-02-07 12:25] LABS: ALKALINE PHOSPHATASE 140 U/L (45-117); BILIRUBIN,TOTAL 0.3 mg/dL (0.2-1.0)
[2021-02-07] MEDS ORDERED: LORazepam 1MG TABLET PO ONE (13:00)
[2021-02-07] MEDS ORDERED: LORazepam 1MG TABLET ONE (13:00)
--- NOTE | 2021-02-07 13:03 | NUR ---
ATIVAN GIVEN PER ERP ORDER.
[2021-02-07 13:46] VITALS: BP 148/78
== END 2021-02-07 13:49 | disposition home or self-care (01) ==
LOC: ED 10:15
DX: R11.2 Nausea with vomiting, unspecified (principal); R10.10 Upper abdominal pain, unspecified; R05 Cough; R51.9 Headache, unspecified; I10 Essential (primary) hypertension; Z87.891 Personal history of nicotine dependence
CPT/HCPCS: 36415; 70450; 71045; 80053; 81003; 83690; 85025; 96361; 96374; 96375; 99285; J2405; J7030

== ENCOUNTER 2021-04-13 07:28 | Emergency (ER) | payer MEDICARE, MEDICAID ==
[~2021-04-13] VITALS: Ht 160 cm; Wt 88.1 kg
[~2021-04-13 07:28] MED LIST changes: -LISI2.5T PO; +LISI2.5T12 PO
[2021-04-13 07:44] VITALS: BP 156/95
--- NOTE | 2021-04-13 07:53 | NUR ---
PT AMBULATORY TO ROOM FROM TRIAGE, PT CHANGED INTO GOWN. CALL LIGHT WITHIN REACH. COMFORT MEASURES PROVIDED
--- NOTE | 2021-04-13 08:09 | NUR ---
pa at bs
--- NOTE | 2021-04-13 08:17 | NUR ---
PT AMBULATORY TO BR WITH UPRIGHT STEADY GAIT FOR URINE SAMPLE
--- NOTE | 2021-04-13 08:30 | NUR ---
THIS RN, CONTACTED SW. VOICEMAIL WAS LEFT
[2021-04-13 08:39] LABS: BASOPHILS % (AUTO) 1 % (0-1); EOSINOPHILS % (AUTO) 2 % (1-7); LYMPHOCYTES % (AUTO) 29 % (22-44); MEAN CORPUSCULAR HEMOGLOBIN 33.2 pg (27.0-34.8); MEAN CORPUSCULAR HGB CONC 34.3 g/dL (32.4-35.8); MEAN PLATELET VOLUME 7.9 fL (7.4-10.4); MONOCYTES % (AUTO) 9 % (2-9); NEUTROPHILS % (AUTO) 59 % (42-75); PLATELET COUNT 302 x10^3/uL (130-400); RED BLOOD COUNT 4.72 x10^6/uL (3.82-5.3); RED CELL DISTRIBUTION WIDTH 14.4 % (9.6-15.2)
[2021-04-13 08:48] LABS: AMPHETAMINE SCREEN, URINE Negative (Negative); BARBITURATE SCREEN, URINE Negative (Negative); BENZODIAZEPINE SCREEN, URINE Negative (Negative); CANNABINOID SCREEN, URINE Negative (Negative); COCAINE SCREEN, URINE Negative (Negative); METHADONE SCREEN, URINE Negative (Negative); OPIATE SCREEN, URINE Negative (Negative)
[2021-04-13 08:49] LABS: ALBUMIN 3.4 g/dL (3.4-5.0); ANION GAP 8 mmol/L (5-15); CALCIUM 8.9 mg/dL (8.5-10.1); CHLORIDE 110 mmol/L (98-107)
[2021-04-13 08:52] LABS: ALANINE AMINOTRANSFERASE 115 U/L (12-78); ALKALINE PHOSPHATASE 137 U/L (45-117); BILIRUBIN,TOTAL 0.3 mg/dL (0.2-1.0); CREATININE 0.85 mg/dL (0.55-1.02); TOTAL PROTEIN 7.5 g/dL (6.4-8.2)
[2021-04-13 08:56] LABS: SALICYLATE LEVEL < 1.7 mg/dL (2.8-20.0)
--- NOTE | 2021-04-13 09:27 | NUR ---
PT RESTING ON LISA BILLINGSLEY. COMFORT MEASURES PROVIDED. CALL LIGHT WITHIN REACH
--- NOTE | 2021-04-13 10:08 | NUR ---
sw at bs
--- NOTE | 2021-04-13 11:09 | NUR ---
Paulina perez in ED - 04/13/21 at 1110 by [email or web address] PT RESTING ON GURNEY, RESPIRATIONS EVEN AND UNLABORED. PT IN SAFE ENVIRONMENT, SITTER IN VIEW.
--- NOTE | 2021-04-13 11:10 | NUR ---
PT SITTING ON LISA BILLINGSLEY. CALL LIGHT WITHIN REACH. PT AMBULATORY TO PHONE TO CONTACT FAMILY. NO NEEDS AT THIS TIME
== END 2021-04-13 11:38 | disposition home or self-care (01) ==
LOC: EDBD 07:28 → ED 11:09
DX: F32.9 Major depressive disorder, single episode, unspecified (principal); F41.1 Generalized anxiety disorder; I10 Essential (primary) hypertension; F20.9 Schizophrenia, unspecified; Z87.891 Personal history of nicotine dependence
CPT/HCPCS: 36415; 80053; 80299; 80307; 80320; 80329; 85025; 99283; G0480

== ENCOUNTER 2021-06-13 10:24 | Emergency (ER) | payer MEDICARE, MEDICAID ==
[~2021-06-13] VITALS: Ht 160 cm; Wt 88.4 kg
[~2021-06-13 10:24] MED LIST changes: +LISI2.5T PO; -LISI2.5T12 PO
--- NOTE | 2021-06-13 10:38 | NUR ---
NIL X1.
[2021-06-13 10:43] VITALS: BP 178/99
[2021-06-13] MEDS ORDERED: KETOROLAC 30 MG/1 ML ONE (11:22)
[2021-06-13] MEDS ORDERED: KETOROLAC 30 MG/1 ML IM ONE (11:30)
== END 2021-06-13 12:36 | disposition home or self-care (01) ==
LOC: ED 10:26
DX: G89.11 Acute pain due to trauma (principal); M25.511 Pain in right shoulder; M75.31 Calcific tendinitis of right shoulder; I10 Essential (primary) hypertension; X58.XXXA Exposure to other specified factors, initial encounter; Y93.89 Activity, other specified; Y92.009 Unspecified place in unspecified non-institutional (private) residence as the place of occurrence of the external cause; Y99.8 Other external cause status
CPT/HCPCS: 73030; 96372; 99283; J1885